=== PATIENT | male | born 1970 | race Caucasian/White ===

== ENCOUNTER 2021-01-29 04:18 | Emergency (ER) | payer MEDICARE, OTHER ==
[~2021-01-29] VITALS: Ht 170.2 cm; Wt 122.5 kg
--- NOTE | 2021-01-29 04:46 | NUR ---
Pt here for ruth lower leg edema that started 2 weeks ago [address] assistant. Dr. Corbin is at the bedside for mse.
[2021-01-29 05:24] LABS: HEMATOCRIT 41.2 % (36.7-47.1); MEAN CORPUSCULAR HEMOGLOBIN 28.6 uug (23.8-33.4); MEAN CORPUSCULAR VOLUME 86.6 fL (73.0-96.2); PLATELET COUNT (AUTO) 191 K/uL (152-348)
[2021-01-29 05:49] LABS: CREATININE 0.9 mg/dL (0.6-1.3)
[2021-01-29 06:04] LABS: *AMPHETAMINE, URINE NEGATIVE (NEGATIVE); *CANNABINOID, URINE NEGATIVE (NEGATIVE); *COCCAINE, URINE NEGATIVE (NEGATIVE); *OPIATE, URINE NEGATIVE (NEGATIVE); *PHENCYCLIDINE SCREEN,URINE NEGATIVE (NEGATIVE)
[2021-01-29] MEDS ORDERED: IOHEXOL 350 100 ML INFUS..BTL ONE (07:23)
[2021-01-29] MEDS ORDERED: IV NORMAL SALINE 250 ML IV ONE (07:23)
[2021-01-29] MEDS ORDERED: SWABABLE VALVE TRANSFER SET EA MC ONE (07:23)
--- NOTE | 2021-01-29 08:00 | NUR ---
Patient in room sleeping with no distress noted.
--- NOTE | 2021-01-29 09:00 | NUR ---
Waiting for CTA result. Called Latonya for a read.
--- NOTE | 2021-01-29 10:00 | NUR ---
No CTA result recieved at this time. Called radiology department to call Latonya for reading.
--- NOTE | 2021-01-29 10:03 | NUR ---
Larisa HAS NOT READ CTA CHEST AT THIS POINT, IT'S WELL OVERDUE. I CALLED EROS AT [facility] TO LET HIM KNOW AND I ALSO LEFT A MESSAGE ON [employer] ([facility] FOR THE RADIOLOGIST TO READ IT RIGHT AWAY AND CALL Babs SUERO WITH RESULTS
[2021-01-29] MEDS ORDERED: ACET-2154 PO (11:21)
[2021-01-29] MEDS ORDERED: GABA100C PO (11:21)
--- NOTE | 2021-01-29 11:30 | NUR ---
IV removed. Catheter intact and site benign. Pressure and 4x4 gauze applied to site. No bleeding noted.
--- NOTE | 2021-01-29 11:36 | NUR ---
Patient discharged to home in stable condition with girlfriend taking patient home. Written and verbal after care instructions given. Patient verbalizes understanding of instructions. Stressed follow up or return to ER for worsening s/s.
[2021-01-29 11:37] VITALS: BP 148/89
== END 2021-01-29 11:38 | disposition home or self-care (01) ==
LOC: ER 04:34
DX: M79.89 Other specified soft tissue disorders (principal); R79.1 Abnormal coagulation profile; Z85.038 Personal history of other malignant neoplasm of large intestine; J45.909 Unspecified asthma, uncomplicated; G47.30 Sleep apnea, unspecified; Z91.19 Patient's noncompliance with other medical treatment and regimen; I70.0 Atherosclerosis of aorta; E11.9 Type 2 diabetes mellitus without complications; Z86.69 Personal history of other diseases of the nervous system and sense organs
CPT/HCPCS: 36415; 71045; 71275; 80048; 80307; 83880; 85025; 85379; 93970; 99285; Q9967; A4663; J7050

== ENCOUNTER 2021-07-01 06:41 | Emergency (ER) | payer MEDICARE, OTHER ==
[~2021-07-01] VITALS: Ht 170.2 cm; Wt 122.5 kg
[~2021-07-01 06:41] MED LIST: ACET-2154 PO; GABA100C PO
--- NOTE | 2021-07-01 07:53 | NUR ---
PT IS IN ROOM #2A. DR ROSARIO EVALUATED THE PT.
--- NOTE | 2021-07-01 10:20 | NUR ---
PT WAS D/C'd TO HOME. D/C INSTRUCTIONS GIVEN TO THE PT BY DR ROSARIO,
[2021-07-01 10:21] VITALS: BP 145/81
== END 2021-07-01 10:21 | disposition home or self-care (01) ==
LOC: ER 06:44
DX: R05.9 Cough, unspecified (principal); R09.81 Nasal congestion; I10 Essential (primary) hypertension; J45.909 Unspecified asthma, uncomplicated; E11.9 Type 2 diabetes mellitus without complications; Z88.8 Allergy status to other drugs, medicaments and biological substances; Z91.048 Other nonmedicinal substance allergy status; Z79.899 Other long term (current) drug therapy; Z20.822 Contact with and (suspected) exposure to COVID-19
CPT/HCPCS: 87426; 99283; U0003; A4663